=== PATIENT | female | born 1990 | race Caucasian/White ===

== ENCOUNTER 2018-09-03 16:32 | Outpatient (CLI) | payer OTHER ==
[2018-09-03] MEDS: LACTATED RINGER'S 1,000 ML IV (20:48)
== END 2018-09-03 22:25 | disposition home or self-care (01) ==
LOC: OBT 16:32 → L-D 16:33 → OBT 22:25
DX: O47.1 False labor at or after 37 completed weeks of gestation (principal); O40.3XX0 Polyhydramnios, third trimester, not applicable or unspecified; Z3A.37 37 weeks gestation of pregnancy
CPT/HCPCS: 36415; 76815; 76818; 96360

== ENCOUNTER 2018-09-25 17:54 | Outpatient (CLI) | payer OTHER | END 2018-09-26 | disposition home or self-care (01) | LOC: OBT 17:54 → L-D 17:56 | DX: O26.893 Other specified pregnancy related conditions, third trimester (principal); E86.0 Dehydration; Z3A.40 40 weeks gestation of pregnancy | CPT/HCPCS: 76815; 76818 ==